=== PATIENT | male | born 1965 | race African-American/Black ===

== ENCOUNTER 2017-04-15 03:10 | Emergency (ER) | payer MEDICAID ==
[~2017-04-15] VITALS: Ht 180.3 cm; Wt 66.0 kg
[2017-04-15 03:13] VITALS: BP 151/102
[2017-04-15 03:57] LABS: ASPARTATE AMINO TRANSFERASE 22 U/L (15-37); BLOOD UREA NITROGEN 9 mg/dL (7-18)
[2017-04-15 04:09] LABS: DAU SCREEN DISCLAIMER
== END 2017-04-15 04:41 | disposition home or self-care (01) ==
LOC: ED 04:40
DX: S39.011A Strain of muscle, fascia and tendon of abdomen, initial encounter (principal); Z72.89 Other problems related to lifestyle; F19.10 Other psychoactive substance abuse, uncomplicated; X58.XXXA Exposure to other specified factors, initial encounter; Y93.89 Activity, other specified; Y99.8 Other external cause status; Y92.89 Other specified places as the place of occurrence of the external cause
CPT/HCPCS: 36415; 80053; 80307; 81003; 83690; 85025; 99284

== ENCOUNTER 2017-05-22 12:57 | Emergency (ER) | payer MEDICAID ==
[~2017-05-22] VITALS: Ht 180.3 cm; Wt 66.6 kg
[2017-05-22 12:58] VITALS: BP 130/90
[2017-05-22] MEDS ORDERED: DIPH,PERTUSS(ACELL),TET VAC/PF 0.5 ML IM-VACC ONE ×2 (13:27→13:30)
[2017-05-22] MEDS ORDERED: LIDOCAINE 1%, 20ML ONE (13:27)
[2017-05-22] MEDS ORDERED: LIDOCAINE 1%, 20ML SQ ONE (13:30)
== END 2017-05-22 14:47 | disposition home or self-care (01) ==
LOC: ED 14:41
DX: S61.012A Laceration without foreign body of left thumb without damage to nail, initial encounter (principal); S61.511A Laceration without foreign body of right wrist, initial encounter; X58.XXXA Exposure to other specified factors, initial encounter; Y93.89 Activity, other specified; Y99.8 Other external cause status; Y92.410 Unspecified street and highway as the place of occurrence of the external cause
CPT/HCPCS: 12001; 90471; 90715; 99283; J3490

== ENCOUNTER 2017-06-03 09:18 | Emergency (ER) | payer MEDICAID ==
[~2017-06-03] VITALS: Ht 180.3 cm; Wt 69.2 kg
[2017-06-03 09:20] VITALS: BP 128/89
[2017-06-03] MEDS ORDERED: BACITRACIN ZINC OINT 500U/GM, 0.9 GM ONE (09:41)
== END 2017-06-03 10:26 | disposition home or self-care (01) ==
LOC: ED 10:05
DX: S61.012D Laceration without foreign body of left thumb without damage to nail, subsequent encounter (principal); X58.XXXD Exposure to other specified factors, subsequent encounter
CPT/HCPCS: 99282

== ENCOUNTER 2017-06-04 09:34 | Emergency (ER) | payer MEDICAID ==
[~2017-06-04] VITALS: Ht 180.3 cm; Wt 69.7 kg
[2017-06-04 09:35] VITALS: BP 152/85
[2017-06-04] MEDS ORDERED: BACITRACIN ZINC OINT 500U/GM, 0.9 GM ONE (10:34)
== END 2017-06-04 11:22 | disposition home or self-care (01) ==
LOC: ED 09:51
DX: S61.412D Laceration without foreign body of left hand, subsequent encounter (principal); X58.XXXD Exposure to other specified factors, subsequent encounter
CPT/HCPCS: 29130

== ENCOUNTER 2017-06-10 02:31 | Emergency (ER) | payer MEDICAID ==
[~2017-06-10] VITALS: Ht 177.8 cm; Wt 66.9 kg
[2017-06-10 02:33] VITALS: BP 135/103
[2017-06-10] MEDS ORDERED: BACITRACIN ZINC OINT 500U/GM, 0.9 GM ONE (03:00)
== END 2017-06-10 03:07 | disposition home or self-care (01) ==
LOC: ED 03:01
DX: Z48.01 Encounter for change or removal of surgical wound dressing (principal)
CPT/HCPCS: 99281

== ENCOUNTER 2017-09-22 07:23 | Emergency (ER) | payer MEDICAID ==
[~2017-09-22] VITALS: Ht 180.3 cm; Wt 72.0 kg
[2017-09-22 07:29] VITALS: BP 138/84
== END 2017-09-22 08:05 | disposition home or self-care (01) ==
LOC: ED 07:55
DX: S99.922A Unspecified injury of left foot, initial encounter (principal); S99.921A Unspecified injury of right foot, initial encounter; B35.3 Tinea pedis; F17.210 Nicotine dependence, cigarettes, uncomplicated; X58.XXXA Exposure to other specified factors, initial encounter; Y93.89 Activity, other specified; Y92.89 Other specified places as the place of occurrence of the external cause; Y99.8 Other external cause status
CPT/HCPCS: 99282

== ENCOUNTER 2017-10-22 23:26 | Emergency (ER) | payer MEDICAID ==
[~2017-10-22] VITALS: Ht 180.3 cm; Wt 69.2 kg
[2017-10-23 00:02] VITALS: BP 148/90
== END 2017-10-23 00:13 | disposition home or self-care (01) ==
LOC: ED 10-23 00:05
DX: L02.411 Cutaneous abscess of right axilla (principal)
CPT/HCPCS: 99281; 99282